=== PATIENT | male | born 1990 | race Caucasian/White ===

== ENCOUNTER 2018-08-17 17:52 | Emergency (ER) | payer OTHER ==
--- NOTE | 2018-08-17 18:52 | UC ---
UC General HPI - History of Current Complaint Chief Complaint: UCRespiratory Stated Complaint: COUGH,FEVER,LOST VOICE Time Seen by Provider: 08/17/18 18:51 Pain Intensity: 0 - Allergy/Home Medications Allergies/Adverse Reactions: Allergies Allergy/AdvReac Type Severity Reaction Status Date / Time No Known Allergies Allergy Verified 08/17/18 18:30 Home Medications: Home Medications D-Methorphan/PE/Acetaminophen [Sudafed PE Pressure+Pain+Cough] 2 each PO BID PRN 08/17/18 [History Confirmed 08/17/18] D-Methorphan/PE/Acetaminophen [Theraflu Expressmax Sever 20-10-650 mg/30Ml] 1 liq PO Q4H PRN 08/17/18 [History Confirmed 08/17/18] [place] Cough Drops 1 tab PO SEE INSTRUCTIONS PRN 08/17/18 [History Confirmed 02/26] PMH/Surg Hx/FS Hx/Imm Hx - Surgical History Surgical History: None - Social History Alcohol Use: Weekly Alcohol Amount: 6-7 Substance Use Type: None Smoking Status (MU): Never Smoked Tobacco Physical Exam Vital Signs: Initial Vital Signs Temp 99.2 F 08/17/18 18:34 Pulse 85 08/17/18 18:34 Resp 18 08/17/18 18:34 BP 147/81 08/17/18 18:34 Pulse Ox 100 08/17/18 18:34 Discharge - Discharge Plan Referrals: No Primary Care Phys,NOPCP [Primary Care Provider] -
[2018-08-17] MEDS ORDERED: Albuterol 2.5 MG/3 ML NEB.SOL* (0.083%) INH ONE (19:06)
--- NOTE | 2018-08-17 19:11 | UC ---
General HPI - HPI Summary HPI Summary: pt c/o laryngitis, scratchy throat, nasal congestion and cough. had f/c's at onset. no cp, sob or asthma. - History of Current Complaint Chief Complaint: UCRespiratory Stated Complaint: COUGH,FEVER,LOST VOICE Time Seen by Provider: 08/17/18 18:51 Hx Obtained From: Patient Onset/Duration: Gradual Onset Timing: Constant Pain Intensity: 0 Associated Signs & Symptoms: Positive: Diarrhea - Allergy/Home Medications Allergies/Adverse Reactions: Allergies Allergy/AdvReac Type Severity Reaction Status Date / Time No Known Allergies Allergy Verified 08/17/18 18:30 Home Medications: Home Medications D-Methorphan/PE/Acetaminophen [Sudafed PE Pressure+Pain+Cough] 2 each PO BID PRN 08/17/18 [History Confirmed 08/17/18] D-Methorphan/PE/Acetaminophen [Theraflu Expressmax Sever 20-10-650 mg/30Ml] 1 liq PO Q4H PRN 08/17/18 [History Confirmed 08/17/18] [place] Cough Drops 1 tab PO SEE INSTRUCTIONS PRN 08/17/18 [History Confirmed 02/26] PMH/Surg Hx/FS Hx/Imm Hx Previously Healthy: Yes - Surgical History Surgical History: None - Family History Known Family History: Positive: Non-Contributory - Social History Alcohol Use: Weekly Alcohol Amount: 6-7 Substance Use Type: None Smoking Status (MU): Never Smoked Tobacco Review of Systems All Other Systems Reviewed And Are Negative: Yes Constitutional: Positive: Fever, Chills Skin: Positive: Negative Eyes: Positive: Negative ENT: Positive: Sinus Congestion Respiratory: Positive: Cough Cardiovascular: Positive: Negative Gastrointestinal: Positive: Diarrhea Genitourinary: Positive: Negative Motor: Positive: Negative Neurovascular: Positive: Negative Musculoskeletal: Positive: Negative Neurological: Positive: Negative Psychological: Positive: Negative Physical Exam Triage Information Reviewed: Yes Appearance: Well-Appearing Vital Signs: Initial Vital Signs Temp 99.2 F 08/17/18 18:34 Pulse 85 08/17/18 18:34 Resp 18 08/17/18 18:34 BP 147/81 08/17/18 18:34 Pulse Ox 100 08/17/18 18:34 Vital Signs Reviewed: Yes Eyes: Positive: Conjunctiva Clear ENT: Positive: Pharynx normal, Nasal congestion, TMs normal, Hoarse voice. Negative: Nasal drainage, Sinus tenderness Neck: Positive: Supple, Nontender, No Lymphadenopathy Respiratory: Positive: No respiratory distress, Decreased breath sounds. Negative: Crackles, Rhonchi, Wheezing Cardiovascular: Positive: RRR, No Murmur Abdomen Description: Positive: Nontender, No Organomegaly, Soft Bowel Sounds: Positive: Present Musculoskeletal: Positive: ROM Intact Neurological: Positive: Alert Psychological: Positive: Age Appropriate Behavior Skin Exam: Normal Diagnostics - Laboratory Diagnostic Studies Completed/Ordered: rapid flu negative Re-Evaluation - Re-Evaluation First Eval Re-Evaluation Time: 19:33 Change: Unchanged - BS same. pt feels no different Course/Dx - Differential Dx - Multi-Symptom Differential Diagnoses: Other - viral syndrom/flu, uri, laryngitis, brinchitis, pneumonia. - Diagnoses Provider Diagnosis: Laryngitis, URI (upper respiratory infection), Bronchitis Discharge - Sign-Out/Discharge Documenting (check all that apply): Patient Departure All imaging exams completed and their final reports reviewed: No Studies - Discharge Plan Condition: Stable Disposition: HOME Prescriptions: predniSONE TAB* [Deltasone 20 MG TAB*] 40 mg PO DAILY 5 Days #10 tab Patient Education Materials: Upper Respiratory Infection (DC), Laryngitis (ED) , Acute Bronchitis (ED) Referrals: EULA Childs [Medical Doctor] - 7 Days - Billing Disposition and Condition Condition: STABLE Disposition: Home
== END 2018-08-17 19:45 | disposition home or self-care (01) ==
LOC: UCCORT 17:52
DX: J04.0 Acute laryngitis (principal); J06.9 Acute upper respiratory infection, unspecified; J40 Bronchitis, not specified as acute or chronic
CPT/HCPCS: 99202; G0463